=== PATIENT | female | born 1985 | race Caucasian/White ===

== ENCOUNTER 2023-12-23 18:38 | Emergency (ER) | payer MEDICAID, SELFPAY ==
[2023-12-23 19:02] VITALS: BP 136/80; PULSE 117; RESP 16; TEMP 36.9; O2SAT 100
== END 2023-12-23 19:10 | disposition left against medical advice (07) ==
PROVIDERS: Emergency Provider Nurse Practitioner Family
DX: Z53.21 Procedure and treatment not carried out due to patient leaving prior to being seen by health care provider (principal)
CPT/HCPCS: 99199